=== PATIENT | female | born 1995 | race Caucasian/White ===

== ENCOUNTER 2021-06-11 13:16 | Emergency (ER) | payer OTHER ==
[~2021-06-11 13:16] MED LIST: BENTYL10 MG PO; IMODIUM A-D2 MG PO; NAPROXEN500 MG PO; ZOFRAN4 MG SL
[2021-06-11 14:37] LABS: BILIRUBIN NEGATIVE (NEGATIVE); BLOOD 2+ Ery/uL (NEGATIVE); CLARITY CLEAR (CLEAR); COLOR YELLOW (YELLOW); GLUCOSE (U) NORMAL (NORMAL); LEUKOCYTES TRACE Leu/uL (NEGATIVE); NITRITE POSITIVE (NEGATIVE); PROTEIN 1+ mg/dL (NEGATIVE); SPECIFIC GRAVITY >=1.030 (1.001-1.030)
[2021-06-11 14:47] LABS: BACTERIA 3+; URINARY RBC 20-50; URINARY WBC 20-50
[2021-06-11 16:08] LABS: BASOPHIL 0.6 % (0-2); EOSINOPHIL 2.8 % (0-5); HCT 42.8 % (37.0-47.0); HGB 13.9 g/dl (12.5-16.0); LYMPHOCYTE 30.8 % (15-48); MCH 29.3 pg (25.0-31.0); MCHC 32.5 g/dL (32.0-36.0); MCV 90.1 fL (78.0-100.0); MONOCYTE 7.8 % (0-12); MPV 10.4 fL (6.0-9.5); NEUTROPHIL 57.4 % (41-80); NRBC 0; PLT 318 K/uL (150-400); RBC 4.75 M/uL (4.20-5.40); RDW 12.5 % (11.5-14.0); WBC 6.4 K/uL (4.0-10.5)
[2021-06-11 16:26] LABS: CREATININE 0.77 mg/dL (0.51-0.95); POTASSIUM 3.8 mmol/L (3.5-5.1)
[2021-06-11] MEDS ORDERED: BACTRIM DS TAB1 EACH PO (17:06)
== END 2021-06-11 17:20 | disposition home or self-care (01) ==
LOC: FER 13:16
PROVIDERS: Nurse Practitioner Family
DX: N39.0 Urinary tract infection, site not specified (principal); Z88.1 Allergy status to other antibiotic agents
CPT/HCPCS: 36415; 80048; 81001; 85025; 87076; 87088; 87186; J0696; J1885; J7030

== ENCOUNTER 2021-07-27 22:13 | Emergency (ER) | payer OTHER ==
[~2021-07-27 22:13] MED LIST changes: +BACTRIM DS TAB1 EACH PO
[2021-07-27 23:32] LABS: BASOPHIL 0.4 % (0-2); EOSINOPHIL 0.7 % (0-5); HCT 45.7 % (37.0-47.0); HGB 14.9 g/dl (12.5-16.0); LYMPHOCYTE 37.1 % (15-48); MCH 29.3 pg (25.0-31.0); MCHC 32.6 g/dL (32.0-36.0); MCV 89.8 fL (78.0-100.0); MPV 10.9 fL (6.0-9.5); NEUTROPHIL 52.4 % (41-80); NRBC 0; PLT 241 K/uL (150-400); RBC 5.09 M/uL (4.20-5.40); RDW 12.7 % (11.5-14.0); WBC 2.7 K/uL (4.0-10.5)
[2021-07-27 23:42] LABS: ALBUMIN 3.5 g/dL (3.4-5.0); BILIRUBIN - TOTAL 0.3 mg/dL (0.2-1.0); BUN/CREAT RATIO (CALC) 10.7 RATIO; CREATININE 0.84 mg/dL (0.51-0.95); GLOBULIN (CALCULATION) 4.1 g/dL; POTASSIUM 3.5 mmol/L (3.5-5.1); TOTAL PROTEIN 7.6 g/dL (6.4-8.2)
[2021-07-28 03:37] LABS: BILIRUBIN NEGATIVE (NEGATIVE); BLOOD NEGATIVE Ery/uL (NEGATIVE); CLARITY CLEAR (CLEAR); COLOR YELLOW (YELLOW); GLUCOSE (U) NORMAL (NORMAL); LEUKOCYTES NEGATIVE Leu/uL (NEGATIVE); NITRITE NEGATIVE (NEGATIVE); PROTEIN NEGATIVE (NEGATIVE)
== END 2021-07-28 04:40 | disposition home or self-care (01) ==
LOC: FER 22:13
PROVIDERS: Emergency Medicine
DX: U07.1 COVID-19 (principal); R30.0 Dysuria; Z88.1 Allergy status to other antibiotic agents
CPT/HCPCS: 36415; 71045; 71275; 80053; 81003; 84484; 85025; 85379; 93005; J7030; Q9967

== ENCOUNTER 2021-07-30 15:02 | Emergency (ER) | payer OTHER ==
[2021-07-30 19:25] LABS: BILIRUBIN 2+ mg/dL (NEGATIVE); BLOOD NEGATIVE Ery/uL (NEGATIVE); COLOR YELLOW (YELLOW); GLUCOSE (U) NORMAL (NORMAL); LEUKOCYTES NEGATIVE Leu/uL (NEGATIVE); NITRITE NEGATIVE (NEGATIVE); PROTEIN TRACE (LOW) mg/dL (NEGATIVE); SPECIFIC GRAVITY >=1.030 (1.001-1.030)
[2021-07-30 19:34] LABS: CLARITY SLIGHTLY HAZY (CLEAR)
[2021-07-30 19:44] LABS: BASOPHIL 0.5 % (0-2); EOSINOPHIL 0 % (0-5); HCT 44.5 % (37.0-47.0); HGB 14.7 g/dl (12.5-16.0); LYMPHOCYTE 40.8 % (15-48); MCH 29.3 pg (25.0-31.0); MCV 88.6 fL (78.0-100.0); MONOCYTE 7.3 % (0-12); MPV 10.9 fL (6.0-9.5); NEUTROPHIL 50.9 % (41-80); NRBC 0; PLT 127 K/uL (150-400); RBC 5.02 M/uL (4.20-5.40); RDW 12.5 % (11.5-14.0); WBC 2.1 K/uL (4.0-10.5)
[2021-07-30 19:59] LABS: ALBUMIN 3.3 g/dL (3.4-5.0); BILIRUBIN - TOTAL 0.3 mg/dL (0.2-1.0); BUN/CREAT RATIO (CALC) 10.1 RATIO; CREATININE 0.79 mg/dL (0.51-0.95); GLOBULIN (CALCULATION) 3.7 g/dL; POTASSIUM 3.5 mmol/L (3.5-5.1)
[2021-07-30] MEDS ORDERED: CYCLOBENZAPRINE10 MG PO (20:32)
[2021-07-30] MEDS ORDERED: IBUPROFEN800 MG PO (20:32)
== END 2021-07-30 20:52 | disposition home or self-care (01) ==
LOC: FER 15:02
PROVIDERS: Internal Medicine
DX: M54.5 Low back pain (principal); U07.1 COVID-19
CPT/HCPCS: 36415; 72100; 80053; 81003; 85025